=== PATIENT | male | born 1975 | race African-American/Black ===

== ENCOUNTER 2017-11-25 22:53 | Emergency (ER) | payer OTHER ==
[2017-11-25 23:40] LABS: BASE EXCESS ARTERIAL 3 mmol/L ((-2)-(+3)); O2 DELIVERY DEVICE ROOM AIR; O2 SATURATION ARTERIAL 96 % (95-100); PCO2 ARTERIAL 41 mmHg (35-45); PO2 ARTERIAL 71 mmHg (70-100)
--- NOTE | 2017-11-25 23:54 | EDM.PDOC ---
ED HPI GENERAL MEDICAL PROBLEM - General Chief Complaint: General Stated Complaint: CHECKED FOR CO2 POISONING [id number] Time Seen by Provider: 11/25/17 23:49 Source of Information: Reports: Patient History Limitations: Reports: No Limitations - History of Present Illness INITIAL COMMENTS - FREE TEXT/NARRATIVE: concerned has carbon monoxide poisoning, Work truck has smelled like exhaust for months, Worse last week, Lst in truck on Wednesday. Wednesday developed sore throat chills some nausea and diarrhea. Concerned that still has cough and body aches tonight. Was told by coworker and [facility] to go be checked out. 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 Cardiovascular History: Reports: Hypertension - Infectious Disease History Infectious Disease History: Reports: Chicken Pox Social & Family History - Family History Family Medical History: Noncontributory - Tobacco Use Smoking Status *Q: Current Some Day Smoker Years of Tobacco use: 3 Packs/Tins Daily: 0.1 - Caffeine Use Caffeine Use: Reports: None - Recreational Drug Use Recreational Drug Use: No ED ROS GENERAL - Review of Systems Review Of Systems: See Below Constitutional: Reports: Fever, Chills, Malaise, Fatigue HEENT: Reports: Sinus Problem, Throat Pain Respiratory: Reports: Cough, Sputum Cardiovascular: Reports: No Symptoms GI/Abdominal: Reports: Nausea : Reports: No Symptoms Musculoskeletal: Reports: Other (generalized aches) Skin: Reports: No Symptoms Neurological: Reports: Dizziness, Headache ED EXAM, GENERAL - Physical Exam Exam: See Below Exam Limited By: No Limitations General Appearance: Alert, No Apparent Distress Eye Exam: Bilateral Eye: EOMI, PERRL Ears: Normal External Exam Nose: Normal Inspection Throat/Mouth: Normal Inspection, Normal Lips Head: Atraumatic, Normocephalic Neck: Normal Inspection Respiratory/Chest: No Respiratory Distress, Lungs Clear, Normal Breath Sounds Cardiovascular: Normal Peripheral Pulses, Regular Rate, Rhythm GI/Abdominal: Normal Bowel Sounds, Soft Extremities: Normal Inspection, Normal Range of Motion Neurological: Alert, Oriented Psychiatric: Normal Affect, Normal Mood Skin Exam: Warm, Dry, Intact, No Rash Course - Vital Signs Last Recorded V/S: Last Vital Signs Temp 100.5 F 11/26/17 00:07 Pulse 62 11/26/17 00:07 Resp 16 11/26/17 00:07 BP 120/78 11/26/17 00:07 Pulse Ox 96 11/26/17 00:07 - Orders/Labs/Meds Labs: Laboratory Tests 11/25/17 11/25/17 11/25/17 Range/Units 22:35 23:40 23:40 WBC 2.5 L (5.0-10.0) 10^3/uL RBC 4.49 L (4.6-6.2) 10^6/uL Hgb 14.2 (14.0-18.0) g/dL Hct 41.3 (40.0-54.0) % MCV 92.0 (80-100) fL MCH 31.6 (27.0-34.0) pg MCHC 34.4 (33.0-35.0) g/dL Plt Count 135 L (150-450) 10^3/uL Neut % (Auto) 42.0 L (42.2-75.2) % Lymph % (Auto) 40.9 (20.5-50.1) % Lamb % (Auto) 15.1 H (2-8) % Eos % (Auto) 2.0 (1.0-3.0) % Baso % (Auto) 0.0 (0.0-1.0) % ABG pH 7.44 (7.35-7.45) ABG pCO2 41 (35-45) mmHg ABG pO2 71 (70-100) mmHg ABG HCO3 27.0 H (22-26) mmol/L ABG O2 Saturation 96 (95-100) % ABG Base Excess 3 ((-2)-(+3)) mmol/L O2 Delivery Device Room air Sodium 133 L (135-145) mmol/L Potassium 4.1 (3.6-5.0) mmol/L Chloride 97 L (101-111) mmol/L Carbon Dioxide 28.0 (21.0-31.0) mmol/L Anion Gap 12.1 BUN 10 (7-18) mg/dL Creatinine 1.1 (0.6-1.3) mg/dL Est Cr Clr Drug Dosing 92.67 mL/min Estimated GFR (MDRD) > 60 BUN/Creatinine Ratio 9.09 Glucose 92 (74-105) mg/dL Lactic Acid (0.5-2.2) mmol/L Calcium 8.8 (8.4-10.2) mg/dl Total Bilirubin 1.2 H (0.2-1.0) mg/dL AST 31 (10-42) IU/L ALT 27 (10-60) IU/L Alkaline Phosphatase 47 (42-121) IU/L Total Protein 7.4 (6.7-8.2) g/dl Albumin 4.3 (3.2-5.5) g/dl Globulin 3.1 Albumin/Globulin Ratio 1.39 04//18 Range/Units 23:40 WBC (5.0-10.0) 10^3/uL RBC (4.6-6.2) 10^6/uL Hgb (14.0-18.0) g/dL Hct (40.0-54.0) % MCV (80-100) fL MCH (27.0-34.0) pg MCHC (33.0-35.0) g/dL Plt Count (150-450) 10^3/uL Neut % (Auto) (42.2-75.2) % Lymph % (Auto) (20.5-50.1) % Lamb % (Auto) (2-8) % Eos % (Auto) (1.0-3.0) % Baso % (Auto) (0.0-1.0) % ABG pH (7.35-7.45) ABG pCO2 (35-45) mmHg ABG pO2 (70-100) mmHg ABG HCO3 (22-26) mmol/L ABG O2 Saturation (95-100) % ABG Base Excess ((-2)-(+3)) mmol/L O2 Delivery Device Sodium (135-145) mmol/L Potassium (3.6-5.0) mmol/L Chloride (101-111) mmol/L Carbon Dioxide (21.0-31.0) mmol/L Anion Gap BUN (7-18) mg/dL Creatinine (0.6-1.3) mg/dL Est Cr Clr Drug Dosing mL/min Estimated GFR (MDRD) BUN/Creatinine Ratio Glucose (74-105) mg/dL Lactic Acid 0.9 (0.5-2.2) mmol/L Calcium (8.4-10.2) mg/dl Total Bilirubin (0.2-1.0) mg/dL AST (10-42) IU/L ALT (10-60) IU/L Alkaline Phosphatase (42-121) IU/L Total Protein (6.7-8.2) g/dl Albumin (3.2-5.5) g/dl Globulin Albumin/Globulin Ratio Meds: Medications Discontinued Medications Generic Name Dose Route Start Last Admin Trade Name Freq PRN Reason Stop Dose Admin Acetaminophen 650 mg 11/26/17 00:06 11/26/17 00:10 Tylenol PO 11/26/17 00:07 650 mg NOW ONE Administration Departure - Departure Time of Disposition: 00:15 Disposition: Home, Self-Care 01 Condition: Good Clinical Impression: Influenza B - Discharge Information Instructions: Influenza, Adult, [id number] Forms: ED Department Discharge Additional Instructions: rest fluids tylenol or ibuprofen for discomfort/fever avoid exposure to very young or elderly good handwashing cover mouth with cough
[2017-11-26] MEDS ORDERED: Acetaminophen 325 MG Tab PO ONE (00:06)
[2017-11-26 00:08] LABS: CHLORIDE,CL 97 mmol/L (101-111); SODIUM,NA 133 mmol/L (135-145)
== END 2017-11-26 00:31 | disposition home or self-care (01) ==
LOC: DL.ED 22:53
DX: J10.1 Influenza due to other identified influenza virus with other respiratory manifestations (principal); F17.210 Nicotine dependence, cigarettes, uncomplicated; Z79.899 Other long term (current) drug therapy
CPT/HCPCS: 36415; 36600; 80053; 82803; 83605; 85025; 87081; 87430; 87804; 99283; A9270-GY